=== PATIENT | female | born 1945 | race Caucasian/White ===

== ENCOUNTER 2022-08-25 12:37 | Outpatient (RCR) | payer MEDICARE, SELFPAY ==
--- NOTE | ~2022-08-25 | XR_ITS ---
EXAMINATION: XR CHEST CLINICAL INFORMATION: Preprocedure evaluation COMPARISON: None available. TECHNIQUE: 2 views of the chest were obtained. FINDINGS: The lungs are clear. The heart is normal in size. The vascularity is normal. No airspace consolidation or groundglass opacity or effusion. The costophrenic sulci are clear. Tapering cardiac apex is consistent with areolar tissue. The hilar and mediastinal contours are unremarkable. There are multilevel degenerative changes thoracic spine. XR/XR chest 2V IMPRESSION: Unremarkable examination.
[2022-09-11 11:57] LABS: MANUAL DIFF FLAG NO
[2022-09-11 12:38] LABS: Basophils Percent Auto 0.7 % (0-2); Eosinophils Absolute Auto 0.1 X10*3/uL (0.0-0.4); Hematocrit 41.1 % (37.0-47.0); Hemoglobin 13.4 g/dl (12.0-16.0); Imm Gran Abs Auto 0.05 X10*3/uL (0.00-0.03); Imm Gran Pct Auto 0.8 % (0.0-0.4); Lymphocytes Absolute Auto 1.2 X10*3/uL (1.2-4.9); Lymphocytes Percent Auto 20.4 % (20-40); Mean Corpuscular HGB Conc 32.6 g/dl (31.0-35.0); Mean Corpuscular Hemoglobin 30.6 pg (27.0-33.0); Mean Corpuscular Volume 93.8 fL (80.0-98.0); Mean Platelet Volume 9.1 fL (9.4-12.3); Monocytes Absolute Auto 0.4 X10*3/uL (0.1-1.2); Monocytes Percent Auto 6.7 % (2-11); Neutrophils Absolute Auto 4.3 x10*3/uL (2.0-8.3); Neutrophils Percent Auto 70.4 % (45-73); Platelet Count 326 X10*3/uL (160-400); Red Blood Count 4.38 X10*6/uL (4.20-5.50); Red Cell Distribution Width 13.3 % (11.0-16.0); White Blood Count 6.1 X10*3/uL (4.8-10.8)
[2022-09-11 13:15] LABS: Anion Gap 13 (12-20); Blood Urea Nitrogen 24 mg/dL (9-16); C Reactive Protein 0.37 mg/dL (< or = 0.50); Calcium 9.6 mg/dL (8.4-10.2); Carbon Dioxide 25 mmol/L (22-29); Chloride 105 mmol/L (96-108); Estimated Glomerular Filt Rate 34; Glucose Random 142 mg/dL (60-115); Potassium 4.6 mmol/L (3.3-5.1); Sodium 138 mmol/L (135-145)
[2022-09-11 13:18] LABS: Erythrocyte Sedimentation Rate 23 MM/HR (0-20); Estimated Average Glucose 128 mg/dL; Hemoglobin A1c % 6.1 %
== END 2022-09-15 13:38 | disposition home or self-care (01) ==
LOC: HO.WCC 12:37
PROVIDERS: PCP Internal Medicine; Visit Provider Surgery
DX: M27.2 Inflammatory conditions of jaws (principal); I10 Essential (primary) hypertension; K04.7 Periapical abscess without sinus; Z85.810 Personal history of malignant neoplasm of tongue; Z92.3 Personal history of irradiation
CPT/HCPCS: 36415; 71046; 80048; 83036; 84134; 85025; 85652; 86140; 99212

== ENCOUNTER 2023-11-17 06:56 | Outpatient (REF) | payer MEDICARE, SELFPAY ==
--- NOTE | ~2023-11-17 | XR_ITS ---
EXAMINATION: XR KNEE, RIGHT XR KNEE, LEFT CLINICAL INFORMATION: Pain in the knees. COMPARISON: None TECHNIQUE: Three views of each knee. FINDINGS: RIGHT KNEE: Tricompartmental osteoarthritis is most severe in the lateral compartment with marginal narrowing, marginal osteophytes, and articular sclerosis. More [id number] medial and patellofemoral compartment osteoarthritis. Multiple loose bodies are present in the posterior aspect of the joint. Small joint effusion. Increased valgus angulation at the knee. No acute fractures. LEFT KNEE: Tricompartmental osteoarthritis is most pronounced in the lateral compartment with joint space narrowing, marginal osteophytes, and articular sclerosis. More [id number] patellofemoral and medial compartment osteoarthritis. Small joint effusion. Increased valgus angulation at the knee. No acute fractures. XR/XR knee RT 3V IMPRESSION: 1. 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 2. Small bilateral joint effusions.
--- NOTE | ~2023-11-17 | XR_ITS ---
EXAMINATION: XR KNEE, RIGHT XR KNEE, LEFT CLINICAL INFORMATION: Pain in the knees. COMPARISON: None TECHNIQUE: Three views of each knee. FINDINGS: RIGHT KNEE: Tricompartmental osteoarthritis is most severe in the lateral compartment with marginal narrowing, marginal osteophytes, and articular sclerosis. More [id number]-zt-xylhlyux medial and patellofemoral compartment osteoarthritis. Multiple loose bodies are present in the posterior aspect of the joint. Small joint effusion. Increased valgus angulation at the knee. No acute fractures. LEFT KNEE: Tricompartmental osteoarthritis is most pronounced in the lateral compartment with joint space narrowing, marginal osteophytes, and articular sclerosis. More vcpe-fh-zsquivyi patellofemoral and medial compartment osteoarthritis. Small joint effusion. Increased valgus angulation at the knee. No acute fractures. XR/XR knee LT 3V IMPRESSION: 1. 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 2. Small bilateral joint effusions.
== END 2023-11-17 06:57 | disposition home or self-care (01) ==
LOC: HO.HOSX 06:56
PROVIDERS: Visit Provider Orthopaedic Surgery
DX: M25.561 Pain in right knee (principal); M25.562 Pain in left knee
CPT/HCPCS: 20610; 73562; 99212; J1010

== ENCOUNTER 2023-11-17 12:54 | Outpatient (AMB) | payer MEDICARE, SELFPAY ==
--- NOTE | 2023-11-17 12:59 | MHC.OFFVIS ---
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 She describes her pains as sharp in nature. She has had cortisone injections which gave her fairly good relief. She has done physical therapy exercises which aggravated her pain. She has also tried Tylenol and anti-inflammatory medicines which gave her only mild relief. She wishes to hold off on surgery for as long as possible. Allergies No Known Allergies Allergy (Verified 11/17/23 13:23) Medication List - Last Reconciled 11/19/23 by Sushant Cordon MD amlodipine 10 mg PO DAILY aspirin (Adult Aspirin Regimen) 81 mg PO DAILY atorvastatin 10 mg PO DAILY calcitriol 0.25 mcg PO DAILY famotidine 20 mg PO BID levothyroxine 100 mcg PO DAILY losartan 25 mg PO DAILY metoprolol tartrate 25 mg PO DAILY Physical Exam Const Other: Well-nourished well-developed very friendly female awake alert and oriented x3 in no acute distress Extrem Other: Bilateral lower extremity examination shows good capillary refill, no skin lesions noted, normal sensation light touch Bilateral knee examination shows minimal effusions, palpable crepitus with range of motion, pain with range of motion, range of motion from -3 degrees to 115 degrees, no instability Office Procedures Joint Injection/Drain Joint Injection/Drain Primary Site: left knee Prep: site was prepped using aseptic technique Injected: 40 mg of, DepoMedrol and 1% plain lidocaine Procedure: The patient tolerated the procedure well Coding 24542 - Large joint Procedure code (CPT) selection complete Joint Injection/Drain Joint Injection/Drain Primary Site: right knee Prep: site was prepped using aseptic technique Injected: 40 mg of, DepoMedrol and 1% plain lidocaine Procedure: The patient tolerated the procedure well Coding 84163 - Large joint Procedure code (CPT) selection complete Results Reviewed Results Reviewed: X-rays of the patient's bilateral knee show joint space narrowing, subchondral sclerosis, no acute bony abnormalities Assessment & Plan Assessment & Plan (1) Left knee pain: Code(s): M25.562 - Pain in left knee Category: Medical (2) Right knee pain: Code(s): M25.561 - Pain in right knee Category: Medical Plan Ms. Parks presents with bilateral knee pains due to degenerative joint disease. I had a lengthy discussion with the patient regarding the treatment options. She wishes to hold off on total knee replacement surgery for as long as possible. I agree with this plan. The risks and benefits of bilateral knee cortisone injections were discussed at length with the patient. The patient wished to proceed. She tolerated the injections well. She will continue with her activity modifications. She will follow up with me on an as-needed basis should her symptoms not plateau at an unacceptable level over the next few months. Feel free to call me at any time should questions regarding her orthopedic management arise. I spent 20 minutes in reviewing the patient's records and imaging studies, seeing the patient and documenting in the medical record. Orders: Orders XR knee RT 3V 11/17/23 M25.561 - Pain in right knee AMB Joint Injection/Aspiration 11/17/23 M25.562 - Pain in left knee XR knee LT 3V 11/17/23 M25.562 - Pain in left knee AMB Joint Injection/Aspiration 11/17/23 M25.561 - Pain in right knee Coding Level of Care Code Est Pt Level 3 (15364) Diagnoses Left knee pain M25.562 Right knee pain M25.561 CPT Codes Coding - 22098 Large joint: 22105 - Large joint ([id number]) Coding - 57725 Large joint: 59161 - Large joint ([id number])
== END 2023-11-17 14:01 | disposition home or self-care (01) ==
PROVIDERS: PCP Internal Medicine; Visit Provider Orthopaedic Surgery
DX: M17.0 Bilateral primary osteoarthritis of knee (principal)
CPT/HCPCS: 20610; 99213

== ENCOUNTER 2024-02-22 13:20 | Outpatient (AMB) | payer MEDICARE, SELFPAY ==
--- NOTE | 2024-02-22 13:28 | MHC.OFFVIS ---
Vital Signs 02/22/24 13:34 Height 5 ft 5 in Weight 190 lb BMI 31.6 Intake Visit Reasons: OV- b/l knee pain-follow up Intake Note: Brooklyn is a 78 year old female who presents with complaints of intermittent discomfort in both of her knees. At her last appointment she did have cortisone injections given into both of her knees. She got fairly good relief from those injections. She states that at this point her bilateral knee pains are tolerable to her. She continues with her home exercise program. She denies any fevers or chills. Allergies No Known Allergies Allergy (Verified 02/22/24 13:35) Medication List - Last Reconciled 02/22/24 by Sushant Cordon MD amlodipine 10 mg PO DAILY aspirin (Adult Aspirin Regimen) 81 mg PO DAILY atorvastatin 10 mg PO DAILY calcitriol 0.25 mcg PO DAILY famotidine 20 mg PO BID levothyroxine 100 mcg PO DAILY losartan 25 mg PO DAILY metoprolol tartrate 25 mg PO DAILY Physical Exam Vital Signs: BMI result Body Mass Index 31.6 Const Other: Well-nourished well-developed very friendly female awake alert and oriented x3 in no acute distress Extrem Other: Bilateral lower extremity examination shows good capillary refill, no skin lesions noted, normal sensation light touch Bilateral knee examination shows minimal effusions, palpable crepitus with range of motion, pain with range of motion, no instability Results Reviewed Results Reviewed: X-rays of the patient's bilateral knees taken previously show joint space narrowing, subchondral sclerosis, no acute bony abnormalities Assessment & Plan Assessment & Plan (1) Right knee pain: Code(s): M25.561 - Pain in right knee Category: Medical (2) Left knee pain: Code(s): M25.562 - Pain in left knee Category: Medical Plan Ms. Parks presents with bilateral knee pains due to degenerative joint disease. I had a lengthy discussion with the patient regarding the treatment options. At this point the patient's symptoms are tolerable to her. She will continue with her home exercise program. She will follow up with me on an as-needed basis should her symptoms worsen in any way. Feel free to call me at any time should questions regarding her orthopedic management arise. I spent 20 minutes in reviewing the patient's records and imaging studies, seeing the patient and documenting in the medical record. Coding Level of Care Code Est Pt Level 3 (51518) Complex EM visit Add On G2211 Diagnoses Right knee pain M25.561 Left knee pain M25.562
[2024-02-22 13:34] VITALS: BMI 31.6
== END 2024-02-22 13:52 | disposition home or self-care (01) ==
PROVIDERS: PCP Internal Medicine; Visit Provider Orthopaedic Surgery
DX: M25.561 Pain in right knee (principal); M25.562 Pain in left knee
CPT/HCPCS: 99213; G2211

== ENCOUNTER → 2024-02-22 13:20 | Outpatient (BNVA) | payer MEDICARE, SELFPAY | PROVIDERS: PCP Internal Medicine; Visit Provider Orthopaedic Surgery | DX: M25.561 Pain in right knee (principal); M25.562 Pain in left knee | CPT/HCPCS: 99212 ==

== ENCOUNTER 2024-02-23 10:18 | Outpatient (REF) | payer MEDICARE, SELFPAY ==
[2024-02-23 11:45] LABS: Anion Gap 12 (12-20); Blood Urea Nitrogen 33 mg/dL (9-16); Calcium 10.3 mg/dL (8.4-10.2); Carbon Dioxide 27 mmol/L (22-29); Chloride 106 mmol/L (96-108); Estimated Glomerular Filt Rate 32; Glucose Random 104 mg/dL (60-115); Potassium 4.9 mmol/L (3.3-5.1); Sodium 140 mmol/L (135-145)
[2024-02-23 12:11] LABS: Folate 6.9 ng/mL (> or = 4.0); Vitamin B12 297 pg/mL (200-900)
== END 2024-02-23 10:19 | disposition home or self-care (01) ==
LOC: HO.LAB 10:18
PROVIDERS: PCP Internal Medicine; Visit Provider Psychiatry & Neurology Neurology
DX: G31.84 Mild cognitive impairment of uncertain or unknown etiology (principal)
CPT/HCPCS: 36415; 80048; 82607; 82746; 84207; 84443

== ENCOUNTER 2024-03-14 11:00 | Outpatient (REF) | payer MEDICARE, SELFPAY | END 2024-03-14 11:01 | disposition home or self-care (01) | LOC: HO.LAB 11:00 | PROVIDERS: PCP Internal Medicine; Visit Provider Psychiatry & Neurology Neurology | DX: Z13.89 Encounter for screening for other disorder (principal) ==

== ENCOUNTER 2024-03-16 09:22 | Outpatient (REF) | payer MEDICARE, SELFPAY ==
[2024-03-23 06:14] LABS: Vitamin B6 5.2 ng/mL (2.1-21.7)
== END 2024-03-16 09:23 | disposition home or self-care (01) ==
LOC: HO.LAB 09:22
PROVIDERS: PCP Internal Medicine; Visit Provider Psychiatry & Neurology Neurology
DX: G31.84 Mild cognitive impairment of uncertain or unknown etiology (principal)
CPT/HCPCS: 36415; 84207

== ENCOUNTER 2024-03-30 13:24 | Outpatient (AMB) | payer MEDICARE, SELFPAY ==
--- NOTE | 2024-03-30 13:29 | A.OFFVIS_ITS ---
Vital Signs 03/30/24 13:31 Height 5 ft 5 in Weight 190 lb BMI 31.6 Intake Visit Reasons: OV - Bilateral Knee Pain Intake Note: Brooklyn is a 78 year old female who presents today for a follow up of her bilateral knee pain. Patient recieved bilateral knee injections on 11/17/23. She states that she got fairly good relief from those injections. Her pains have returned. She has tried Tylenol and anti-inflammatory medicines which gave her minimal relief. She has also done physical therapy exercises which aggravated her pain. She would like to hold off on total knee replacement surgery if at all possible. Allergies morphine Allergy (Severe, Verified 03/30/24 13:32) Vomiting ELIJAH Inhibitors Adverse Reaction (Severe, Verified 03/30/24 13:32) Cough Medication List - Last Reconciled 03/31/24 by Sushant Cordon MD amlodipine 10 mg PO DAILY aspirin (Adult Aspirin Regimen) 81 mg PO DAILY atorvastatin 10 mg PO DAILY calcitriol 0.25 mcg PO DAILY famotidine 20 mg PO BID levothyroxine 100 mcg PO DAILY losartan 25 mg PO DAILY metoprolol tartrate 25 mg PO DAILY [facility] Social History (Updated 03/30/24 @ 13:33 by NABEEL Olsen) Alcohol intake: current Alcohol intake frequency: holidays/special occasions only Patient Tobacco Use Status: Never used Tobacco Current occupational status: retired Physical Exam Vital Signs: BMI result Body Mass Index 31.6 Const Other: Well-nourished well-developed very friendly female awake alert and oriented x3 in no acute distress Extrem Other: Bilateral lower extremity examination shows good capillary refill, no skin lesions noted, normal sensation light touch Bilateral knee examination shows minimal effusions, palpable crepitus with range of motion, pain with range of motion, no instability Office Procedures AMB Joint Injection/Aspiration Joint Injection/Aspiration Primary Site: left knee Prep: site was prepped using aseptic technique Injected: 40 mg of, DepoMedrol and 1% plain lidocaine Procedure: The patient tolerated the procedure well Coding 06351 - Large joint Procedure code (CPT) selection complete AMB Joint Injection/Aspiration Joint Injection/Aspiration Primary Site: right knee Prep: site was prepped using aseptic technique Injected: 40 mg of, DepoMedrol and 1% plain lidocaine Procedure: The patient tolerated the procedure well Coding 00320 - Large joint Procedure code (CPT) selection complete Results Reviewed Results Reviewed: X-rays of the patient's bilateral knee show joint space narrowing, subchondral sclerosis, no acute bony abnormalities Assessment & Plan Assessment & Plan (1) Left knee pain: Code(s): M25.562 - Pain in left knee Category: Medical (2) Right knee pain: Code(s): M25.561 - Pain in right knee Category: Medical Plan Ms. Parks presents with bilateral knee pains due to degenerative joint disease. A lengthy discussion patient regarding treatment options. The risks and benefits of bilateral knee cortisone injections were discussed at length with the patient. The patient wished to proceed. She tolerated the injections well. She will continue with her home exercise program. She will contact me prior to her follow-up appointment in 3 months should any questions or concerns arise. Feel free to call me at any time should questions regarding her orthopedic management arise. I spent 22 minutes in reviewing the patient's records and imaging studies, seeing the patient and documenting in the medical record. Orders: Orders AMB Joint Injection/Aspiration 03/30/24 M25.561 - Pain in right knee AMB Joint Injection/Aspiration 03/30/24 M25.562 - Pain in left knee Coding Level of Care Code Est Pt Level 3 (32841) Complex EM visit Add On G2211 Diagnoses Left knee pain M25.562 Right knee pain M25.561 CPT Codes Coding - 14229 Large joint: 98879 - Large joint ([id number]) Coding - 29609 Large joint: 43561 - Large joint ([id number])
[2024-03-30 13:31] VITALS: BMI 31.6
== END 2024-03-30 13:54 | disposition home or self-care (01) ==
PROVIDERS: PCP Internal Medicine; Visit Provider Orthopaedic Surgery
DX: M17.0 Bilateral primary osteoarthritis of knee (principal)
CPT/HCPCS: 20610; 99213

== ENCOUNTER → 2024-03-30 13:24 | Outpatient (BNVA) | payer MEDICARE, SELFPAY | PROVIDERS: PCP Internal Medicine; Visit Provider Orthopaedic Surgery | DX: M25.561 Pain in right knee (principal); M25.562 Pain in left knee | CPT/HCPCS: 20610; 99212; J1010; J2003 ==

== ENCOUNTER 2024-07-11 13:28 | Outpatient (AMB) | payer MEDICARE, SELFPAY ==
--- NOTE | 2024-07-11 13:34 | A.OFFVIS_ITS ---
Intake Visit Reasons: OV-B/L knee injection follow up Intake Note: Brooklyn is an 79 year old female who presents today for a follow up of her bilateral knee pains. The patient states that she got mild relief from the injections given to her at her last visit. She states that her bilateral legs feel ?weak?. The patient states that she does not have a home exercise program. She would like to try formal physical therapy. Allergies morphine Allergy (Severe, Verified 07/11/24 13:37) Vomiting ELIJAH Inhibitors Adverse Reaction (Severe, Verified 07/11/24 13:37) Cough Medication List - Last Reconciled 07/11/24 by Sushant Cordon MD amlodipine 10 mg PO DAILY aspirin (Adult Aspirin Regimen) 81 mg PO DAILY atorvastatin 10 mg PO DAILY calcitriol 0.25 mcg PO DAILY famotidine 20 mg PO BID levothyroxine 100 mcg PO DAILY losartan 25 mg PO DAILY metoprolol tartrate 25 mg PO DAILY PFSH Social History Alcohol intake: current Alcohol intake frequency: holidays/special occasions only Patient Tobacco Use Status: Never used Tobacco Current occupational status: retired Physical Exam Const Other: Well-nourished well-developed very friendly female awake alert and oriented x3 in no acute distress Extrem Other: Bilateral lower extremity examination shows good capillary refill, no skin lesions noted, normal sensation light touch Bilateral knee examination shows minimal effusions, palpable crepitus with range of motion, pain with range motion, no instability Assessment & Plan Assessment & Plan (1) Degenerative arthritis of knee, bilateral: Code(s): M17.0 - Bilateral primary osteoarthritis of knee Category: Medical Plan Ms. Parks presents with bilateral knee pains due to degenerative joint disease. I did give her a prescription to go to formal physical therapy. We will hold off on another injection for now. She will contact me prior to her follow-up a ppointment in 3 months should any questions or concerns arise. Feel free to call me at any time should questions regarding her orthopedic management arise. I spent 21 minutes in reviewing the patient's records and imaging studies, seeing the patient and documenting in the medical record. Orders: Orders PT Evaluation and Treatment Today M17.0 - Bilateral primary osteoarthritis of knee Coding Level of Care Code Est Pt Level 3 (65260) Complex EM visit Add On G2211 Diagnoses Degenerative arthritis of knee, bilateral M17.0
--- OUTSIDE RECORDS SUMMARY | 2024-07-11 16:34 | XMS_ITS ---
Author Name [facility] Organization Unknown History of Medication Use Medication Directions Dispensed Refills Start Date End Date Stat us atorvastatin 20 mg tablet TAKE ONE-HALF TABLET BY MOUTH ONCE DAILY active Kenalog 40 mg/mL suspension for injection Take 1 mL by injection route. 03/30/2023 active losartan 08/12/2022 completed losartan 25 mg tablet TAKE ONE TABLET BY MOUTH EVERY DAY active Kenalog 40 mg/mL suspension for injection active levothyroxine 125 mcg tablet TAKE ONE TABLET BY MOUTH DAILY 03/30/2023 completed amlodipine 10 mg tablet TAKE ONE TABLET BY MOUTH EVERY DAY active Allergies Allergen Reaction Severity Comment Documented Date Source Statu s MORPHINE [facility] LISINOPRIL [facility] Problems Problem Status Onset Date Problem Type Date of Resoluti on Source Full thickness rotator cuff tear active 2022-08-05 ProblemAct [facility] Impingement syndrome of left shoulder region active 2022-08-12 ProblemAct [facility] ECT
--- OUTSIDE RECORDS SUMMARY | 2024-07-11 16:34 | XMS_ITS | Clinical Summary ---
Author Organization [address] Address [address] [place] [phone] Phone Care Team Providers Care Public Relations Writer Name Role Phone Jefferson Fletcher MD Primary Care Provider [phone] Allergies Active Allergy Reactions Criticality Noted Date Comments Charles Inhibitors Other Low 01/03/2009 Cough Morphine Nausea And Vomiting 05/02/2006 Medications atorvastatin (LIPITOR) 20 mg tablet Take 10 mg by mouth at bedtime. 2 Active famotidine (PEPCID) 20 mg tablet Take 1 tablet (20 mg total) by mouth 2 (two) times a day. Active losartan (COZAAR) 25 mg tablet Take 1 tablet (25 mg total) by mouth 1 (one) time each day. Active cholecalcifero l (VITAMIN D-3) 50 mcg (2,000 unit) capsule Take 1 capsule (2,000 Units total) by mouth 1 (one) time each day. 1 Active aspirin 81 mg chewable tablet Chew 1 tablet (81 mg total) 1 (one) time each day. Active metoprolol tartrate (LOPRESSOR) 25 mg tablet TAKE ONE TABLET BY MOUTH EVERY DAY 90 tablet 1 4 Active levothyroxine (SYNTHROID, LEVOTHROID) 100 mcg tablet Take 1 tablet (100 mcg total) by mouth 1 (one) time each day. 90 tablet 1 5 Active calcitrioL (ROCALTROL) 0.25 mcg capsule Take 1 capsule (0.25 mcg total) by mouth every other day. 90 capsule 3 5 Active amLODIPine (NORVASC) 10 mg tablet TAKE ONE TABLET BY MOUTH EVERY DAY 90 tablet 5 Active amLODIPine (NORVASC) 10 mg tablet Take 1 tablet (10 mg total) by mouth 1 (one) time each day. 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 (04/24/2024): Of jaw, related to the radiation therapy Chronic kidney disease, stage III (moderate) 04/2007 Hypothyroidism 02/22/2007 Malignant neoplasm of base of tongue 04/05/2006 Overview (04/24/2024): treated with chemo 02/2006 - 04/2006 RT to lymph nodes D11-04/2006 X4 Obesity, unspecified 12/14/2005 Hypercholesterolemia 05/04/2000 Ocular migraine 09/17/1998 Overview (04/24/2024): IMO update Hypertension 06/28/1998 Encounters Date Type Department Care Team Description 06/07/2024 3:00 PM EST Office Visit Nephrology [address] [phone] Osmar Bales MD Stage 3b chronic kidney disease (CMS/HCC) (Primary Dx); Primary hypertension; Secondary hyperparathyroidism of renal origin (CMS/HCC) 05/25/2024 Telephone Adult Medicine [address] [phone] Zuly Vega [place] refill/ patient came in for refill from Last 3 Months Immunizations Name Administration Dates Next Due H1N1 Inj Preservative Free 05/15/2009 Hepatitis A Adult (Havrix; V aqta) 19yo and older 10/26/2003 IPV Inactivated polio (Ipol) 6wks and older 11/02/2003 Influenza trivalent, 0.5mL ( Fluad) 65yo and older 02/03/2016,02/22/2014,01/24/2013,03/18,01/21/2011,01/23/2010,01/28/2009 Influenza trivalent, 0.5mL, preservative free (Fluarix; FluLaval; Fluzone) ages 6mo and older (Afluria) 3 years and older 03/19/2008,02/22/2007 Pfizer SARS-CoV-2 COVID-19, mRNA, LNP-S, preservative free 06/16/2020 Pneumococcal conjugate 13 va lent (Prevnar 13, PCV13) 2mo and older 08/09/2018 Pneumococcal polysaccharide 23 valent (Pneumovax 23) 2yo and older 01/22/2014,04/13/2005 Td Tetanus diptheria (Tdvax) 7yo and older 10/19/2003,12/04/1993 Td, Unspecified 10/19/2003 Tdap Tetanus diptheria acell ular pertussis (Boostrix; Adacel) 7yo and older 01/22/2014 Surgical History Surgery Date Site/Laterality Comments OTHER SURGICAL HISTORY 12/2004 PROCEDURE: MAMMOGRAM, DIAGNOSTIC, BILATERAL; COMMENT: CODE 1 NEGATIVE OTHER SURGICAL HISTORY 05/27/2004 PROCEDURE: SCREENING PAP SMEAR BY PHYS; COMMENT: NEGATIVE OTHER SURGICAL HISTORY 07/30/1998 PROCEDURE: DXA, BONE DENSITY STUDY, 1+ SITES; VERTEBRAL FX ASSESS; COMMENT: NORMAL TONSILLECTOMY PROCEDURE: HISTORICAL TONSILLECTOMY COLONOSCOPY 06/06/1998 PROCEDURE: HISTORICAL COLONOSCOPY; COMMENT: NORMAL COLONOSCOPY 05/28/2005 PROCEDURE: HISTORICAL COLONOSCOPY; COMMENT: Dr. Miller at [facility]; negative exam for small volume rectal bleedilng. COLONOSCOPY 05/27/2017 PROCEDURE: HISTORICAL COLONOSCOPY; COMMENT: negative screening exam. Medical History Medical History Date Comments Osteoarthrosis, unspecified whether generalized or localized, ankle and foot 03/18/99 DX:Osteoarthrosis, unspecifi ed whether generalized or localized, ankle and foot Pure hypercholesterolemia 05/04/00 DX:Pur e hypercholesterolemia Submucous leiomyoma of uterus 10/28/00 DX :Submucous leiomyoma of uterus Personal history of diseases of skin and subcutaneous tissue 10/12/2001 DX:Personal history of disea ses of skin and subcutaneous tissue Other forms of migraine, wit hout mention of intractable migraine without mention of status migrainosus 09/17/1998 DX:Other forms o f migraine, without mention of intractable migraine without mention of status migrainosus Malignant neoplasm of base o f tongue (CMS/HCC) 04/05/2006 DX:Malignant neoplasm of bas e of tongue ([facility]); COMMENT: treated with chemo 02/2006 - 04/2006 RT to lymph nodes D1-04/2006 X4 Type II or unspecified type diabetes mellitus without mention of complication, not stated as uncontrolled 04/28/99 DX:Type II or unspecified ty pe diabetes mellitus without mention of complication, not stated as uncontrolled; COMMENT: DIET CONTROLLED Esophageal reflux 01/12/01 DX:Esophageal reflux Essential hypertension, benign 06/28/98 D X:Essential hypertension, benign Unspecified hypothyroidism 02/22/2007 DX:Un specified hypothyroidism DM (diabetes mellitus) type II controlled with renal manifestation (CMS/HCC) 04/27/2011 DX:DM (diabetes mellitus) ty pe II controlled with renal manifestation ([facility]) History of other specified c onditions presenting hazards to health 2005 DX:History of other speci fied conditions presenting hazards to health; COMMENT: tongue and lymph node Family History Medical History Relation Name Comments Breast cancer Aunt mat and a cousin Other: atrial fibrillation Daughter a t age 45 Coronary artery disease Father AGE 88 (PACEMAKER,CAROTID STENOSIS) Other: carotid disease Father Arthritis Mother Hyperlipidemia Mother HYPERLIPIDEMI A, htn Stroke Mother Breast cancer Other 1 mat cousin Other: cad Other 2 nephew had CABG at 45 Hypertension Sister Melanoma Uncle Blindness Neg Hx Cataracts Neg Hx Glaucoma Neg Hx Macular degeneration Neg Hx Strabismus Neg Hx Relation Name Status Comments Aunt mat Daughter Father Mother Other 1 mat cousin Other 2 Sister Uncle Social History Tobacco Use Types Packs/Day Years Used Date Smoking Tobacco: Never Smokeless Tobacco: Never Alcohol Use Standard Drinks/Week Comments Yes 0 (1 standard drink = 0.6 oz pur e alcohol) Comments Unknown Sex and Gender Information Value Date Recorded Sex Assigned at Not on file Legal Sex Female 7:08 PM EST Gender Identity Not on file Sexual Orientation Not on file Obstetrics History Last Filed Vital Signs Vital Sign Reading Time Taken Comments Blood Pressure 138/78 03/13/2024 3:13 PM EDT Pulse 69 06/07/2024 3:25 PM EST Temperature - - Respiratory Rate - - Oxygen Saturation 98% 11/01/2023 1:0 0 PM EDT at rest, room air Inhaled Oxygen Concentration - - Weight 89 kg (196 lb 3.2 oz) 06/07/2024 3:25 PM EST Height 165.1 cm (5' 5 ) 03/13/2024 3:13 PM EDT Body Mass Index 32.65 03/13/2024 3:13 PM EDT Plan of Treatment Upcoming Encounters Date Type Department Care Team (Late st Contact Info) Description 07/27/2024 9:30 AM EDT Office Visit [facility] - [address] [phone] Mariano Low PA [address] [place], [place] 01/03/2025 4:30 PM EDT Office Visit Nephrology - [address] [phone] Osmar Bales MD [address] [facility] [address] [place] [address] 01/16/2025 8:00 AM EDT Appointment Radiology Department - [address] [phone] Health Maintenance Due Date Last Done Comments Diabetes: Annual Retina Eye Exam 1955 Zoster Vaccines (1 of 2) 1963 IPV Vaccines (2 of 3 - Adult catch-up series) 11/30/2003 11/02/2003 RSV Immunization Patients 60+ Years Old (1 - 1-dose 75+ series) 2019 Social Influencers of Health Screening 04/25/2022 COVID-19 Vaccine ( season) 2024 04/01/2022, 02/20/2021, 07/07/2020, Additional history exists Influenza Vaccine (#1) 2024 6, 02/22/2014, 01/24/2013, Additional history exists DTaP,Tdap,and Td Vaccines (5 - Td or Tdap) 01/23/2024 01/22/2014, 10/19/2003, 10/19/2003, Additional history exists Diabetes: Blood Sugar Control Test (HGBA1C) 11/30/2024 06/02/2024, 03/09/2024, 03/09/2024, Additional history exists Depression Screening 03/13/2025 03/13/2024 Diabetes: Annual Foot Exam 03/13/2025 03/13/2024 Falls Risk Assessment 03/13/2025 03/13/2024 Medicare Annual Wellness Visit 03/13/2025 03/13/2024 Diabetes: Annual Urine Albumin-Creatinine Ratio (uACR) 06/02/2025 06/02/2024, 08/26/2023 Diabetes: Annual GFR (Glomerular Filtration Rate) 06/02/2025 06/02/2024, 10/21/2023, 10/21/2023 Hypertension/CHF/CAD Annual BMP Blood Test 06/02/2025 06/02/2024, 10/21/2023, 10/21/2023 Cholesterol Screening (Lipid Panel) 06/02/2029 06/02/2024, 08/26/2023 Osteoporosis Screening (Bone Density Screening) 01/15/2033 01/15/2023, 03/29/2017 Hepatitis A Vaccines Aged Out 10/26/2003 No long er eligible based on patient's age to complete this topic Pneumococcal Vaccine: 50+ Years Completed 08/09/2018, 01/22/2014, 04/13/2005 HIB Vaccines Aged Out No longer eligi ble based on patient's age to complete this topic HPV Vaccines Aged Out No longer eligi ble based on patient's age to complete this topic Hepatitis B Vaccines Aged Out No long er eligible based on patient's age to complete this topic MMR Vaccines Aged Out No longer eligi ble based on patient's age to complete this topic Meningococcal ACWY Vaccine Aged Out N o longer eligible based on patient's age to complete this topic Meningococcal B Vacine Aged Out No lo nger eligible based on patient's age to complete this topic RSV Immunization Patients Under 20 months Aged Out No longer eligible based on patient's age to complete this topic Varicella Vaccines Aged Out No longer eligible based on patient's age to complete this topic Procedures Procedure Name Priority Date/Time Associated Diagnosis Comments HEMOGLOBIN A1C Routine 06/02/2024 1:07 PM EST DM type 2 causing eye disease (CMS/HCC) Hypertension, unspecified type Hypercholesterolem ia Hypothyroidism, unspecified type Stage 3 chronic kidney disease, unspecified whether stage 3a or 3b CKD (CMS/HCC) MICROALBUMIN CREATININE URINE RATIO Routine 06/02/2024 1:07 PM EST DM type 2 causing eye disease (CMS/HCC) Hypertension, unspecified type Hypercholesterolem ia Hypothyroidism, unspecified type Stage 3 chronic kidney disease, unspecified whether stage 3a or 3b CKD (CMS/HCC) BASIC METABOLIC PANEL Routine 06/02/2024 1:07 PM EST DM type 2 causing eye disease (CMS/HCC) Hypertension, unspecified type Hypercholesterolem ia Hypothyroidism, unspecified type Stage 3 chronic kidney disease, unspecified whether stage 3a or 3b CKD (CMS/HCC) LIPID PANEL WITH REFLEX TO DIRECT LDL Routine 06/02/2024 1:07 PM EST DM type 2 causing eye disease (CMS/HCC) Hypertension, unspecified type Hypercholesterolem ia Hypothyroidism, unspecified type Stage 3 chronic kidney disease, unspecified whether stage 3a or 3b CKD (CMS/HCC) ASPARTATE AMINOTRANSFERASE Routine 06/02/2024 1:07 PM EST DM type 2 causing eye disease (CMS/HCC) Hypertension, unspecified type Hypercholesterolem ia Hypothyroidism, unspecified type Stage 3 chronic kidney disease, unspecified whether stage 3a or 3b CKD (CMS/HCC) ALANINE AMINOTRANSFERASE Routine 025 1:07 PM EST DM type 2 causing eye disease (CMS/HCC) Hypertension, unspecified type Hypercholesterolem ia Hypothyroidism, unspecified type Stage 3 chronic kidney disease, unspecified whether stage 3a or 3b CKD (CMS/HCC) DEPRESSION SCREENING Routine 03/13/2024 FALLS RISK ASSESSMENT Routine 03/13/2024 DIABETES FOOT EXAM Routine 03/13/2024 DXA BONE DENSITY STUDY 1+ SITS AXIAL SKEL Routine 01/15/2023 11:04 AM EDT Other specified personal risk factors, not elsewhere classified from Last 3 Months or Most Recently Relevant to Health Maintenance Results * (ABNORMAL) Lipid panel with reflex to direct LDL (06/02/2024 1:07 PM EST) [facility] Cholesterol 217(H) 0 - 200 mg/dL LAB CHEMISTRY METHOD 06/02/2024 9:12 PM EST [facility] Triglycerides 208(H) 0 - 150 mg/dL LAB CHEMISTRY METHOD 06/02/2024 9:12 PM EST [facility] HDL 61 >=40 mg/dL LAB CHEMISTRY METHOD 06/02/2024 9:12 PM EST [facility] LDL Calculated 114(H) 0 - 100 mg/dL LAB CHEMISTRY METHOD 06/02/2024 9:12 PM EST [facility] VLDL Cholesterol Gregory 41.6 mg/dL LAB CHEMISTRY METHOD 06/02/2024 9:12 PM EST [facility] Non HDL Chol. (LDL+VLDL) 156(H) <145 mg/dL LAB CHEMISTRY METHOD 06/02/2024 9:12 PM EST [facility] Chol/HDL Ratio 3.6 0.0 - 4.4 LAB CHEMISTRY METHOD 06/02/2024 9:12 PM EST [facility] Blood Venous blood specimen / Unknown Venipuncture / Unknown 06/02/2024 1:07 PM EST 06/02/2024 1:07 PM EST us Jefferson Fletcher MD LAB BLOOD ORDERABLES Final Resul t [facility] [address] [place] [address], [place] [phone] * (ABNORMAL) Microalbumin creatinine urine ratio (06/02/2024 1:07 PM EST) Pathologist [facility] Creatinine, Urine 158.0 mg/dL LAB CHEMISTRY METHOD 06/02/2024 10:58 PM [facility] Microalb, Ur 45.4(H) 0.0 - 29.0 mg/L LAB CHEMISTRY METHOD 06/02/2024 10:58 PM [facility] Microalb/Crea t Ratio 29 <30 mg/g creat LAB CHEMISTRY METHOD 06/02/2024 10:58 PM [facility] Urine Urine specimen obtained by clean catch procedure / Unknown Non-blood Collection / Unknown 06/02/2024 1:07 PM EST 06/02/2024 1:07 PM EST us Jefferson Fletcher MD LAB URINE ORDERABLES Final Resul t Performing Organization Address City/[facility]/ZIP Co de Phone Number [facility] [address] [place] [address], [place] [phone] * Alanine aminotransferase (06/02/2024 1:07 PM EST) [facility] ALT (SGPT) 21 10 - 60 unit/L LAB CHEMISTRY METHOD 06/02/2024 9:11 PM EST [facility] Blood Venous blood specimen / Unknown Venipuncture / Unknown 06/02/2024 1:07 PM EST 06/02/2024 1:07 PM EST us Jefferson Fletcher MD LAB BLOOD ORDERABLES Final Resul t [facility] [address] [place] [address], [place] [phone] * Aspartate aminotransferase (06/02/2024 1:07 PM EST) AST (SGOT) 14 10 - 42 unit/L LAB CHEMISTRY METHOD 06/02/2024 9:11 PM EST [facility] Blood Venous blood specimen / Unknown Venipuncture / Unknown 06/02/2024 1:07 PM EST 06/02/2024 1:07 PM EST us Jefferson Fletcher MD LAB BLOOD ORDERABLES Final Resul t Performing Organization Address City/[facility]/ZIP Co de Phone Number [facility] [address] [place] [address], [place] [phone] * Hemoglobin A1c (06/02/2024 1:07 PM EST) Hemoglobin A1C 6.3 <6.5 % LAB CHEMISTRY METHOD 06/02/2024 10:06 PM [facility] Mean Bld Glu Estim. 134 mg/dL LAB CHEMISTRY METHOD 06/02/2024 10:06 PM [facility] Blood Venous blood specimen / Unknown Venipuncture / Unknown 06/02/2024 1:07 PM EST 06/02/2024 1:07 PM EST us Jefferson Fletcher MD LAB BLOOD ORDERABLES Final Resul t Performing Organization Address [facility]/ZIP Co de Phone Number [facility] [address] [place] [address], [place] [phone] * (ABNORMAL) Basic metabolic panel (06/02/2024 1:07 PM EST) Pathologist [facility] Sodium 134 133 - 145 mmol/L LAB CHEMISTRY METHOD 06/02/2024 9:11 PM EST [facility] Potassium 4.6 3.5 - 5.5 mmol/L LAB CHEMISTRY METHOD 06/02/2024 9:11 PM EST [facility] Chloride 101 96 - 110 mmol/L LAB CHEMISTRY METHOD 06/02/2024 9:11 PM EST [facility] CO2 28 21 - 32 mmol/L LAB CHEMISTRY METHOD 06/02/2024 9:11 PM [facility] Anion Gap 5 3 - 11 LAB CHEMISTRY METHOD 06/02/2024 9:11 PM [facility] Glucose 114(H) 70 - 100 mg/dL LAB CHEMISTRY METHOD 06/02/2024 9:11 PM [facility] BUN 33(H) 5 - 25 mg/dL LAB CHEMISTRY METHOD 06/02/2024 9:11 PM [facility] Creatinine 1.66(H) 0.50 - 1.10 mg/dL LAB CHEMISTRY METHOD 06/02/2024 9:11 PM [facility] eGFR 31(L) >=60 mL/min/1. 73m2 LAB CHEMISTRY METHOD 06/02/2024 9:11 PM [facility] Comment:Calculation based on the??Chronic Kidney Disease Epidemiology Collaboration (CKD-EPI) equation refit??without adjustment for race. BUN/Creatinine Ratio 19.9 LAB CHEMISTRY METHOD 06/02/2024 9:11 PM [facility] Calcium 9.7 8.5 - 10.5 mg/dL LAB CHEMISTRY METHOD 06/02/2024 9:11 PM [facility] Blood Venous blood specimen / Unknown Venipuncture / Unknown 06/02/2024 1:07 PM EST 06/02/2024 1:07 PM EST Jefferson Fletcher MD LAB BLOOD ORDERABLES Final Resul t [facility] [address] [place] [address], * Falls Risk Assessment (03/13/2024) Falls Risk Assessment Abstracted Historical Provider HEALTH MAINTENANCE Final Result * Depression Screening (03/13/2024) Depression Screening Abstracted Historical Provider HEALTH MAINTENANCE Final Result * Diabetes Foot Exam (03/13/2024) Diabetes: Annual Foot Exam Abstracted us Historical Provider HEALTH MAINTENANCE Final Result * DXA BONE DENSITY STUDY 1+ SITS AXIAL SKEL (01/15/2023 11:04 AM EDT) Anatomical Region Laterality Modality Bone Densitometr y 12/01/2022 10:1 4 AM EDT Narrative 01/15/2023 5:49 PM EDT STUDY: ??DUAL ENERGY X-RAY ABSORPTIOMETRY / DXA REASON FOR EXAM: ?? Female, 77 years old. ??menopausal/postmenopausal disorder TECHNIQUE: ?? Bone Mineral Density (BMD) measurements of the lumbar spine and left hip were obtained. ?? COMPARISON: March 29, 2017 ?? FINDINGS: L1-L4 T score: 2.3. ??This corresponds to Normal bone density. This represents a 3.9 % increase in bone density compared with prior exam from March 29, 2017. Left femoral neck T score: 0.3. ??This corresponds to Normal bone density. Left total hip T score: 0.4. ??This corresponds to Normal bone density. This represents a 2.1 % increase in bone density compared with prior exam from March 29, 2017. IMPRESSION: IMPRESSION: Normal bone density Reference Information: The T-score is the number of standard deviations above or below the standard which is normal for young adults at their peak bone mineral density. The World Health Organization (WHO) interprets the T-scores as follows: Above ??-1 ?Normal bone density Between -1 and -2.5 ?Osteopenia Equal to / or below -2.5 ??Osteoporosis As a practical clinical guideline, osteopenia may be graded as follows: Mild -1 through -1.5 Moderate -1.6 ??through -2.0 Severe ??-2.1 ??through -2.4 References: 1. ??NIH Osteoporosis and Related Bone Diseases http://www.osteo.org 2. ??International Society for Clinical Densitometry http://www.iscd.org 3. ??National Osteoporosis Foundation http://www.nof.org Procedure Note Brissa Dee MD - 06/22/2023 STUDY: DUAL ENERGY X-RAY ABSORPTIOMETRY / DXA REASON FOR EXAM: Female, 77 years old. menopausal/postmenopausaldisorder TECHNIQUE: Bone Mineral Density (BMD) measurements of the lumbar spineand left hip were obtained. COMPARISON: March 29, 2017 FINDINGS: L1-L4 T score: 2.3. This corresponds to Normal bone density. This represents a 3.9 % increase in bone density compared with prior examfrom March 29, 2017. Left femoral neck T score: 0.3. This corresponds to Normal bonedensity. Left total hip T score: 0.4. This corresponds to Normal bone density. This represents a 2.1 % increase in bone density compared with prior examfrom March 29, 2017. IMPRESSION: IMPRESSION: Normal bone density Reference Information: The T-score is the number of standard deviations above or below thestandard which is normal for young adults at their peak bone mineral density. The World HealthOrganization (WHO) interprets the T-scores as follows: Above -1 Normal bone density Between -1 and -2.5 Osteopenia Equal to / or below -2.5 Osteoporosis As a practical clinical guideline, osteopenia may be graded as follows: Mild -1 through -1.5 Moderate -1.6 through -2.0 Severe -2.1 through -2.4 References: 1. NIH Osteoporosis and Related Bone Diseases http://www.osteo.org 2. International Society for Clinical Densitometry http://www.iscd.org 3. National Osteoporosis Foundation http://www.nof.org Mariano OBRIEN IMG DXA PROCEDURES Final Result from Last 3 Months or Most Recently Relevant to Health Maintenance Insurance MEDICARE [facility] Care Teams Public Relations Writer Relationship Specialty Start Date End Date Jefferson Fletcher MD [address] [place] [address] PCP - General 05/17/1992
--- OUTSIDE RECORDS SUMMARY | 2024-07-11 16:34 | XMS_ITS | Clinical Summary ---
Author Organization [facility] Facility Address [address] [address] Care Team Providers Care Stone Rougher Name Role Phone Unavailable Primary Care Provider Unavailabl e Medications calcitriol (ROCALTROL) 0.25 MCG capsule Take 1 capsule (0.25 mcg total) by mouth every other day 15 capsule 5 07/07/2021 Active Social History Tobacco Use Types Packs/Day Years Used Date Smoking Tobacco: Never Assessed Comments Unknown Sex and Gender Information Value Date Recorded Sex Assigned at Not on file Legal Sex Female 4:46 PM EST Gender Identity Not on file Sexual Orientation Not on file Plan of Treatment Health Maintenance Due Date Last Done Comments Pneumococcal Vaccine: 65+ Ye ars (1 of 1 - PCV) 2009 Influenza Vaccine (#1) 2024 Hepatitis B Vaccine Aged Out No longe r eligible based on patient's age to complete this topic
--- OUTSIDE RECORDS SUMMARY | 2024-07-11 16:34 | XMS_ITS | Clinical Summary ---
Author Organization [facility] Address [address] [place] [address] Care Team Providers Care Plastics Design Engineer Name Role Phone Jefferson Fletcher MD Primary Care Provider [phone] Allergies Active Allergy Reactions Criticality Noted Date Comments Charles Inhibitors Other (See Comments) Low 01/03/2009 Cough Morphine Nausea And Vomiting 05/02/2006 Medications Medication Sig Dispensed Refills Start Date End Date Status amLODIPine (NORVASC) tablet 10 mg TAKE ONE TABLET BY MOUTH EVERY DAY 0 04/15/2022 Active aspirin 81 MG chewable tablet Chew 1 tablet (81 mg total) by mouth daily. 0 Active atorvastatin (LIPITOR) tablet 20 mg TAKE ONE TABLET BY MOUTH EVERY DAY 0 03/05/2022 Active famotidine (PEPCID) 20 MG tablet 0 04/21/2022 Active Cholecalciferol 50 MCG (1999 UT) CAPS Take 1 capsule by mouth daily. 0 09/14/2010 Active levothyroxine (SYNTHROID) tablet 125 mcg Take 1 tablet (125 mcg total) by mouth daily. 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 07/23/2022 Impingement syndrome of left shoulder 07/23/2022 Family History Medical History Relation Name Comments Hypertension Mother Relation Name Status Comments Mother Social History Tobacco Use Types Packs/Day Years Used Date Smoking Tobacco: Never Assessed Tobacco Cessation:Counseling Given: Not Answered Sex and Gender Information Value Date Recorded Sex Assigned at Not on file Gender Identity Not on file Sexual Orientation Not on file Job Start Date Occupation Industry Not on file Not on file Not on file Last Filed Vital Signs Vital Sign Reading Time Taken Comments Blood Pressure - - Pulse - - Temperature - - Respiratory Rate - - Oxygen Saturation - - Inhaled Oxygen Concentration - - Weight 88.5 kg (195 lb) 04/24/2022 11:27 AM EST Height 165.1 cm (5' 5 ) 04/24/2022 11:27 AM EST Body Mass Index 32.45 04/24/2022 11:27 AM EST Plan of Treatment Health Maintenance Due Date Last Done Comments Depression Screening 1956 BMI Counseling 1962 Preventative Health Evaluation 1962 Shingrix-Zoster Vaccine (1 of 2) 1994 Fall Risk Assessment 2009 Osteoporosis Screening (DEXA Scan) 2009 RSV Adult > 60+ Yrs or (1 - 1-dose 75+ series) 2019 COVID-19 Vaccine ( season) 2024 02/20/2021, 07/07/2020, 06/17/2020 Influenza Vaccine (#1) 2024 6, 02/22/2014, 02/22/2014, Additional history exists DTap / Tdap / Td (2 - Td or Tdap) 01/23/2024 01/22/2014, 10/19/2003, 12/04/1993 Pneumococcal Vaccine Completed 08/09/2018, 01/22/2014, 04/13/2005 Hepatitis B Vaccines Aged Out No long er eligible based on patient's age to complete this topic RSV Ped < 20 months Aged Out No longe r eligible based on patient's age to complete this topic Care Teams Plastics Design Engineer Relationship Specialty Start Date End Date Jefferson Fletcher MD PCP - General Internal Medicine 04/24/22
== END 2024-07-11 13:52 | disposition home or self-care (01) ==
PROVIDERS: PCP Internal Medicine; Visit Provider Orthopaedic Surgery
DX: M17.0 Bilateral primary osteoarthritis of knee (principal)
CPT/HCPCS: 99213; G2211

== ENCOUNTER → 2024-07-11 13:28 | Outpatient (BNVA) | payer MEDICARE, SELFPAY | PROVIDERS: PCP Internal Medicine; Visit Provider Orthopaedic Surgery | DX: M17.0 Bilateral primary osteoarthritis of knee (principal) | CPT/HCPCS: 99212 ==

== ENCOUNTER 2024-12-05 09:54 | Outpatient (AMB) | payer MEDICARE, SELFPAY ==
--- NOTE | 2024-12-05 10:08 | A.OFFVIS_ITS ---
Vital Signs 12/05/24 10:08 Height 5 ft 5 in Intake Visit Reasons: 6 mnts / MCl Allergies morphine Allergy (Severe, Verified 12/05/24 10:16) Vomiting ELIJAH Inhibitors Adverse Reaction (Severe, Verified 12/05/24 10:16) Cough Medication List - Last Reconciled 12/05/24 by Kasia Miranda CNP amlodipine 10 mg PO DAILY aspirin (Adult Aspirin Regimen) 81 mg PO DAILY atorvastatin 10 mg PO DAILY calcitriol 0.25 mcg PO DAILY famotidine 20 mg PO BID levothyroxine 100 mcg PO DAILY losartan 25 mg PO DAILY metoprolol tartrate 25 mg PO DAILY HPI Comments Details: She was started on medication about 2 weeks ago for 2 months, but is unsure of name. Memory was about the same. She still has trouble with names and places. She was in a book club that meets once a month, but had to read the book close to when they were meeting or she would forget what she read. 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 She was shopping, cooking, cleaning, and managing finances. Sleep was so-so. No neck pain or upper extremity symptoms at this time. [place] memory not as sharp beginning around 2019, particularly for names places and remembering what she has read. Hx of episodes of tingling that go from the shoulders down to the hands bilaterally without any triggers, lasting from several seconds to a couple of minutes. Sometimes her whole head tingles from the neck up. At times she feels like a black veil coming over her, but she does not pass out or lose her vision. She used to get optical migraines from the till about 2013 and then they had stopped till a single episode in 01/2024. [facility] Medical History (Updated 12/05/24 @ 10:15 by Kasia Miranda CNP) Cervical myelopathy MCI (mild cognitive impairment) Social History Alcohol intake: current Alcohol intake frequency: holidays/special occasions only Patient Tobacco Use Status: Never used Tobacco Current occupational status: retired Review of Systems Const Denies chills, Denies daytime sleepiness, Reports difficulty sleeping, Denies fatigue, Denies fever(s), Denies frequent falls, Denies headache(s), Denies increased appetite, Denies poor appetite, Reports snoring, Denies weakness, Denies weight gain and Denies weight loss Eyes Denies loss of vision ENT Denies vertigo, Reports dizziness, Denies headache(s) and Denies neck pain Card Denies chest pain at rest, Denies chest pain with activity, Denies syncope, Denies leg edema, Denies palpitations, Denies dyspnea and Denies dyspnea on exertion Resp Denies cough, Denies dyspnea, Denies dyspnea on exertion and Reports snoring GI Denies abdominal pain, Denies constipation, Denies heartburn, Denies diarrhea and Denies nausea Denies urinary frequency, Denies urinary incontinence and Denies urinary urgency Musc Denies abnormal gait, Denies back pain, Denies myalgias, Denies arthralgias, Denies neck pain, Reports numbness and Reports tingling Neuro Denies abnormal gait, Denies vertigo, Reports dizziness, Denies syncope, Denies frequent falls, Denies headache(s), Denies lack of coordination, Denies loss of vision, Reports memory loss, Reports numbness, Denies Other visual disturbances, Denies restless legs, Denies seizure-like activity, Reports tingling, Denies paresthesias, Denies tremor(s) and Denies weakness Psych Denies anxiety, Denies depression, Denies auditory hallucinations, Reports memory loss and Denies visual hallucinations Endo Denies fatigue and Denies palpitations Physical Exam Const Other: General Appearance:? normal, in no acute distress. Heart:? S1, S2 normal, no murmurs. Lungs:? clear anteriorly and posteriorly. Musculoskeletal:? normal. Extremities:? no edema. Psych:? alert, as below Neuro Other: Abnormal Neurological Findings:?none.? Mental Status: alert, as below Cranial Nerves: Pupils are equal, round, and reactive to light. External ocular muscles are intact. Visual malhotra are full, no ptosis. Face is symmetrical, no facial weakness or droop. Facial sensations are normal. Tongue protrudes in midline. Palate elevates symmetrically. Shoulder shrugging is normal Motor Examination: Normal muscle tone, bulk and strength. No atrophy or fasciculations. No drift of the extended upper extremities. DTR 2+. Plantars are flexor. Straight Leg Raisin degrees. Sensory Exam: Normal light touch, temperature, pinprick, vibration, and joint- position sensations. Rhomberg sign is absent. Coordination: No ataxia. No titubation. Ocaqgr-nd-cstx, vrlw-qmcl-rfdq test, and rapid alternating movements were normal. Gait Exam: Within normal limits. Cerebellar Signs: Doeizz-bu-fvdn and fkcb-hf-bgit is normal. No dysdiadochokinesia. Extrapyramidal System: No tremor, rigidity with normal facial expressions. No bradykinesia. No bradyphrenia. Normal arm swing and posture. No propulsion or retropulsion. Speech: Normal. No dysphasia or dysarthria. MMSE Level of Consciousness: Alert. Orientation: Knows correct year, month, day and season. Does not know date (says it is December 04) Knows correct city, county and state. Knows correct location and floor. Registration: Able to register 3 objects. Attention: Serial 7's performed accurately to 65 Recall: Able to recall 3 out of 3 objects. Language: Normal spontaneous speech, fluency, repetition, naming, comprehension, reading, and writing. Total Score: 29/30. Results Reviewed Results Reviewed: 03/16/24 EEG- WNL 03/14/24 NCV/EMG UE Early Carpal tunnel syndrome on the right. Normal EMG in the right C5-T1 innervated muscles. Labs normal except for known kidney impairment. 02/28/24 MRI C spine: Severe spinal stenosis at C5-6 and C 6-7 with cord distortion and compression and myelomalacia, severe foraminal stenosis at C5-6 on left and C6-7 on RWill drop off disc for review 11/07 MRI Brain: Interval progression of atrophy compared to 2020. Small focus in FLAIR signal in left parietal lobe white matter Assessment & Plan Assessment & Plan (1) MCI (mild cognitive impairment): Code(s): G31.84 - Mild cognitive impairment of uncertain or unknown etiology Category: Medical Plan: She was not interested in medication at this time. Stay physically, socially, and intellectually active. (2) Cervical myelopathy: Code(s): G95.9 - Disease of spinal cord, unspecified Category: Medical Plan: Stable. Aware to contact office or neurosurgeon if symptoms change/worsen. Coding Level of Care Code Est Pt Level 3 (27759) Diagnoses MCI (mild cognitive impairment) G31.84 Cervical myelopathy G95.9
--- OUTSIDE RECORDS SUMMARY | 2024-12-05 10:45 | XMS_ITS ---
Author Name [facility] Organization Unknown History of Medication Use Medication Directions Dispensed Refills Start Date End Date Stat us Kenalog 40 mg/mL suspension for injection Take 1 mL by injection route. 03/30/2023 active levothyroxine 125 mcg tablet TAKE ONE TABLET BY MOUTH DAILY 03/30/2023 completed losartan 08/12/2022 completed Kenalog 40 mg/mL suspension for injection active amlodipine 10 mg tablet TAKE ONE TABLET BY MOUTH EVERY DAY active atorvastatin 20 mg tablet TAKE ONE-HALF TABLET BY MOUTH ONCE DAILY active losartan 25 mg tablet TAKE ONE TABLET BY MOUTH EVERY DAY active Allergies Allergen Reaction Severity Comment Documented Date Source Statu s LISINOPRIL ENS[facility]ECT MORPHINE [facility] Problems Problem Status Onset Date Problem Type Date of Resoluti on Source Full thickness rotator cuff tear active 2022-08-05 ProblemAct [facility] Impingement syndrome of left shoulder region active 2022-08-12 ProblemAct [facility] ECT Encounters Encounter Type Encounter Reason Primary Diagnosis Location Date Ambulatory [facility] 09/02/2022 Ambulatory [facility] 08/12/2022
--- OUTSIDE RECORDS SUMMARY | 2024-12-05 10:45 | XMS_ITS | Clinical Summary ---
Author Organization [facility] Address [address] [place] [address] Care Team Providers Care Team Assembly Line Machine Operator Name Role Phone Jefferson Fletcher MD Primary Care Provider [phone] Allergies Active Allergy Reactions Criticality Noted Date [...] Vaccine ( season) 2024 02/20/2021, 07/07/2020, 06/17/2020 DTap / Tdap / Td (2 - Td or Tdap) 01/23/2024 01/22/2014, 10/19/2003, 12/04/1993 Influenza Vaccine (#1) 2025 6, 02/22/2014, 02/22/2014, Additional history exists Pneumococcal Vaccine Completed 08/09/2018, 01/22/2014, 04/13/2005 Hepatitis B Vaccines Aged Out No long er eligible based on patient's age to complete this topic RSV Ped < 20 months Aged Out No longe r eligible based on patient's age to complete this topic Care Teams Team Assembly Line Machine Operator Relationship Specialty Start Date End Date Jefferson Fletcher MD PCP - General Internal Medicine 04/24/22
--- OUTSIDE RECORDS SUMMARY | 2024-12-05 10:45 | XMS_ITS | Clinical Summary ---
Author Organization [facility] [address] [facility] Address [address] [place] [address] Phone Care Team Providers Care Healthcare Translator Name Role Phone Jefferson Fletcher MD Primary Care Provider [phone] Allergies Active Allergy Reactions Criticality Noted Date Comments Charles Inhibitors Other Low 01/03/2009 Cough Morphine Nausea And Vomiting 05/02/2006 Medications atorvastatin (LIPITOR) 20 mg tablet Take 10 mg by mouth at bedtime. 2 Active cholecalcifero l (VITAMIN D-3) 50 mcg (2,000 unit) capsule Take 1 capsule (2,000 Units total) by mouth 1 (one) time each day. 1 Active aspirin 81 mg chewable tablet Chew 1 tablet (81 mg total) 1 (one) time each day. Active calcitrioL (ROCALTROL) 0.25 mcg capsule Take 1 capsule (0.25 mcg total) by mouth every other day. 90 capsule 3 5 Active famotidine (PEPCID) 20 mg tablet TAKE ONE TABLET BY MOUTH TWICE A DAY 180 tablet 5 Active losartan (COZAAR) 25 mg tablet TAKE ONE TABLET BY MOUTH EVERY DAY 30 tablet 2 5 Active amLODIPine (NORVASC) 10 mg tablet TAKE ONE TABLET BY MOUTH EVERY DAY 90 tablet 5 Active levothyroxine (SYNTHROID, LEVOTHROID) 100 mcg tablet TAKE ONE TABLET BY MOUTH EVERY DAY 90 tablet 5 Active buPROPion (WELLBUTRIN) 75 mg tablet Take 1 tablet (75 mg total) by mouth 2 (two) times a day. 60 each 1 5 01/13/20 25 Active metoprolol tartrate (LOPRESSOR) 25 mg tablet TAKE ONE TABLET BY MOUTH EVERY DAY 90 tablet 1 5 Active metoprolol tartrate (LOPRESSOR) 25 mg tablet TAKE ONE TABLET BY MOUTH EVERY DAY 90 tablet 1 4 11/22/19 25 Discontinued Active Problems Problem Noted Date Diagnosed Date Secondary hyperparathyroidism of renal origin ([facility] V24) 06/07/2024 Memory deficit 06/09/2022 Esophageal dysmotility 12/15/2021 Gastroesophageal reflux disease without esophagi tis 05/07/2015 DM type 2 causing eye disease ([facility] V24, [facility]/ [facility] V28) 09/14/2014 Nuclear sclerosis 09/14/2014 Overview (04/24/2024): Present in both eyes--taken from note of Dr. 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 ([facility] V24, [facility] V28) 04/05/2006 Overview (04/24/2024): treated with chemo 02/2006 - 04/2006 RT to lymph nodes D11-04/2006 X4 Obesity, unspecified 12/14/2005 Hypercholesterolemia 05/04/2000 Ocular migraine 09/17/1998 Overview (04/24/2024): IMO update Hypertension 06/28/1998 Assessment & Plan (07/27/2024 1:30 PM EDT): Encounters Date Type Department Care Team Description 11/13/2024 2:30 PM EDT Office Visit Adult Medicine [address] [phone] Jefferson Fletcher MD Stage 3b chronic kidney disease ([facility] V24, [facility] V28) (Primary Dx); DM type 2 causing eye disease ([facility] V24, [facility] V28); Primary hypertension; Hypothyroidism, unspecified type; Memory deficit; Lack of motivation from Last 3 Months Immunizations Name Administration Dates Next Due H1N1 Inj Preservative Free 05/15/2009 Hepatitis A Adult (Havrix; V aqta) 19yo and older 10/26/2003 IPV Inactivated polio (Ipol) 6wks and older 11/02/2003 Influenza trivalent, 0.5mL ( Fluad) 65yo and older 02/03/2016,02/22/2014,01/24/2013,03/18,01/21/2011,01/23/2010,01/28/2009 Influenza trivalent, 0.5mL, preservative free (Fluarix; FluLaval; Fluzone) ages 6mo and older (Afluria) 3 years and older 03/19/2008,02/22/2007 [employer] SARS-CoV-2 COVID-19, mRNA, LNP-S, preservative free 06/16/2020 [...] PROCEDURE: HISTORICAL COLONOSCOPY; COMMENT: Dr. 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 (CMS/HCC V24, CMS/HCC V28) 04/05/2006 DX:Malignant neoplasm of ba se of tongue (HCC); COMMENT: treated with chemo 02/2006 - 04/2006 [...] mellitus) type II controlled with renal manifestation (CMS/HCC V24, CMS/HCC V28) 04/27/2011 DX:DM (diabetes mellitus) t ype II controlled with renal manifestation ([facility]) History of other specified c onditions [...] = 0.6 oz pur e alcohol) Comments No Sex and Gender Information Value Date Recorded Sex Assigned at Not on file Legal Sex Female 7:08 PM EST Gender Identity Not on file Sexual Orientation Not on file Obstetrics History Last Filed Vital Signs Vital Sign Reading Time Taken Comments Blood Pressure 129/84 11/13/2024 2:28 PM EDT Pulse 74 11/13/2024 2:28 PM EDT Temperature 36.3 C (97.3 F) 11/13/2024 2:28 PM EDT Respiratory Rate 20 11/13/2024 2:28 PM EDT Oxygen Saturation 98% 07/27/2024 9:36 AM EDT Inhaled Oxygen Concentration - - Weight 86.2 kg (190 lb) 11/13/2024 2:28 PM EDT Height 165.1 cm (5' 5 ) 11/13/2024 2:28 PM EDT Body Mass Index 31.62 11/13/2024 2:28 PM EDT Plan of Treatment Upcoming Encounters Date Type Department Care Team (Late st Contact Info) Description 01/03/2025 4:30 PM EDT Office Visit Nephrology - [address] [phone] Osmar Bales MD [address] [facility] [address] [place] [phone] 01/16/2025 8:00 AM EDT Appointment Radiology Department - [address] [phone] 01/17/2025 8:30 AM EDT Office Visit Adult Medicine [facility] - [address] [phone] Jefferson Fletcher MD [address] [place] [address] Health Maintenance Due Date Last Done Comments Diabetes: Annual Retina Eye Exam 1955 Zoster Vaccines (1 of 2) 1963 IPV Vaccines (2 of 3 - Adult catch-up series) 11/30/2003 11/02/2003 RSV Immunization Adult Patients (1 - 1-dose 75+ series) 2019 Social Influencers of Health Screening 04/25/2022 COVID-19 Vaccine (5 - 2023- season) 2024 04/01/2022, 02/20/2021, 07/07/2020, Additional history exists DTaP,Tdap,and Td Vaccines (5 - Td or Tdap) 01/23/2024 01/22/2014, 10/19/2003, 10/19/2003, Additional history exists Diabetes: Blood Sugar Control Test (HGBA1C) 11/30/2024 06/02/2024, 03/09/2024, 03/09/2024, Additional history exists Influenza Vaccine (#1) 2025 6, 02/22/2014, 01/24/2013, Additional history exists Diabetes: Annual Foot Exam 03/13/2025 03/13/2024 Falls [...] Vaccine: 50+ Years Completed 08/09/2018, 01/22/2014, 04/13/2005 Depression Screening Completed 11/10/2024, 03/13/20 24 HIB Vaccines Aged Out No longer eligi [...] age to complete this topic Meningococcal B Vaccine Aged Out No l onger eligible based on patient's age to complete this topic RSV Immunization Patients Under 20 months Aged Out No longer eligible based on patient's age to complete this topic Varicella Vaccines Aged Out No longer eligible based on patient's age to complete this topic Procedures Procedure Name Priority Date/Time Associated Diagnosis Comments MICROALBUMIN CREATININE URINE RATIO Routine 06/02/2024 1:07 PM EST DM type 2 causing eye disease ([facility]/HCC V24, CMS/HCC V28) Hypertension, unspecified type Hypercholesterolemi a Hypothyroidism, unspecified type Stage 3 chronic kidney disease, unspecified whether stage 3a or 3b CKD (CMS/HCC V24, CMS/HCC V28) BASIC METABOLIC PANEL Routine 06/02/2024 1:07 PM EST DM type 2 causing eye disease (CMS/HCC V24, CMS/HCC V28) Hypertension, unspecified type Hypercholesterolemi a Hypothyroidism, unspecified type Stage 3 chronic kidney disease, unspecified whether stage 3a or 3b CKD (CMS/HCC V24, CMS/HCC V28) HEMOGLOBIN A1C Routine 06/02/2024 1:07 PM EST DM type 2 causing eye disease (CMS/HCC V24, CMS/HCC V28) Hypertension, unspecified type Hypercholesterolemi a Hypothyroidism, unspecified type Stage 3 chronic kidney disease, unspecified whether stage 3a or 3b CKD (CMS/HCC V24, CMS/HCC V28) LIPID PANEL WITH REFLEX TO DIRECT LDL Routine 06/02/2024 1:07 PM EST DM type 2 causing eye disease ([facility] V24, [facility] V28) Hypertension, unspecified type Hypercholesterolemi a Hypothyroidism, unspecified type Stage 3 chronic kidney disease, unspecified whether stage 3a or 3b CKD ([facility] V24, [facility] V28) DEPRESSION SCREENING Routine 03/13/2024 FALLS RISK ASSESSMENT Routine 03/13/2024 DIABETES FOOT EXAM Routine 03/13/2024 DXA BONE DENSITY STUDY 1+ SITS AXIAL SKEL Routine 01/15/2023 11:04 AM EDT Other specified personal risk factors, not elsewhere classified from Last 3 Months or Most Recently Relevant to Health Maintenance Results * (ABNORMAL) Lipid panel with reflex to direct LDL (06/02/2024 1:07 PM EST) Cholesterol 217(H) 0 - 200 mg/dL LAB CHEMISTRY METHOD 06/02/2024 9:12 PM [facility] Triglycerides 208(H) 0 - 150 mg/dL LAB CHEMISTRY METHOD 06/02/2024 9:12 PM [facility] HDL 61 >=40 mg/dL LAB CHEMISTRY METHOD 06/02/2024 9:12 PM [facility] LDL Calculated 114(H) 0 - 100 mg/dL LAB CHEMISTRY METHOD 06/02/2024 9:12 PM [facility] VLDL Cholesterol Gregory 41.6 mg/dL LAB CHEMISTRY METHOD 06/02/2024 9:12 PM [facility] Non HDL Chol. (LDL+VLDL) 156(H) <145 mg/dL LAB CHEMISTRY METHOD 06/02/2024 9:12 PM [facility] Chol/HDL Ratio 3.6 0.0 - 4.4 LAB CHEMISTRY METHOD 06/02/2024 9:12 PM [facility] Blood Venous blood specimen / Unknown Venipuncture / Unknown 06/02/2024 1:07 PM EST 06/02/2024 1:07 PM EST us Jefferson Fletcher MD LAB BLOOD ORDERABLES Final Resul t Performing Organization Address [facility]/ZIP Co de Phone Number [facility] [address] [place] [address], * (ABNORMAL) Microalbumin creatinine urine ratio (06/02/2024 1:07 PM EST) Creatinine, Urine 158.0 mg/dL LAB CHEMISTRY METHOD 06/02/2024 10:58 PM EST [facility] Microalb, Ur 45.4(H) 0.0 - 29.0 mg/L LAB CHEMISTRY METHOD 06/02/2024 10:58 PM EST [facility] Microalb/Crea t Ratio 29 <30 mg/g creat LAB CHEMISTRY METHOD 06/02/2024 10:58 PM EST [facility] Urine Urine specimen obtained by clean catch procedure / Unknown Non-blood Collection / Unknown 06/02/2024 1:07 PM EST 06/02/2024 1:07 PM EST us Jefferson Fletcher MD LAB URINE ORDERABLES Final Resul t Performing Organization Address City/[facility]/ZIP Co de Phone Number [facility] [address] [place] [address], [place] [phone] * Hemoglobin A1c (06/02/2024 1:07 PM EST) Hemoglobin A1C 6.3 <6.5 % LAB CHEMISTRY METHOD 06/02/2024 10:06 PM EST [facility] Mean Bld Glu Estim. 134 mg/dL LAB CHEMISTRY METHOD 06/02/2024 10:06 PM EST [facility] Blood Venous blood specimen / Unknown Venipuncture / Unknown 06/02/2024 1:07 PM EST 06/02/2024 1:07 PM EST us Jefferson Fletcher MD LAB BLOOD ORDERABLES Final Resul t [facility] [address] [place] [address], [place] [phone] * (ABNORMAL) Basic metabolic panel (06/02/2024 1:07 PM EST) Sodium 134 133 - 145 mmol/L LAB CHEMISTRY METHOD 06/02/2024 9:11 PM [facility] Potassium 4.6 3.5 - 5.5 mmol/L LAB CHEMISTRY METHOD 06/02/2024 9:11 PM [facility] Chloride 101 96 - 110 mmol/L LAB CHEMISTRY METHOD 06/02/2024 9:11 PM [facility] CO2 28 21 - 32 mmol/L LAB CHEMISTRY METHOD 06/02/2024 9:11 PM [facility] Anion Gap 5 3 - 11 LAB CHEMISTRY METHOD 06/02/2024 9:11 PM [facility] Glucose 114(H) 70 - 100 mg/dL LAB CHEMISTRY METHOD 06/02/2024 9:11 PM [facility] BUN 33(H) 5 - 25 mg/dL LAB CHEMISTRY METHOD 06/02/2024 9:11 PM [facility] Creatinine 1.66(H) 0.50 - 1.10 mg/dL LAB CHEMISTRY METHOD 06/02/2024 9:11 PM [facility] eGFR 31(L) >=60 mL/min/1. 73m2 LAB CHEMISTRY METHOD 06/02/2024 9:11 PM [facility] Comment:Calculation based on the Chronic Kidney Disease Epidemiology Collaboration (CKD-EPI) equation refit without adjustment for race. BUN/Creatinine Ratio 19.9 LAB CHEMISTRY METHOD 06/02/2024 9:11 PM [facility] Calcium 9.7 8.5 - 10.5 mg/dL LAB CHEMISTRY METHOD 06/02/2024 9:11 PM EST [facility] Blood Venous blood specimen / Unknown Venipuncture / Unknown 06/02/2024 1:07 PM EST 06/02/2024 1:07 PM EST Jefferson Fletcher MD LAB BLOOD ORDERABLES Final Resul t [facility] [address] [place] [address], [place] [phone] * Falls Risk Assessment (03/13/2024) [facility] Falls Risk Assessment Abstracted [facility] Provider HEALTH MAINTENANCE Final Result * Depression Screening (03/13/2024) Pathologist [facility] Depression Screening Abstracted Historical Provider HEALTH MAINTENANCE Final Result * Diabetes Foot Exam (03/13/2024) Pathologist [facility] Diabetes: Annual Foot Exam Abstracted [facility] Provider HEALTH MAINTENANCE Final Result * DXA BONE DENSITY STUDY 1+ SITS AXIAL SKEL (01/15/2023 11:04 AM EDT) Anatomical Region Laterality Modality Bone Densitometr y 12/01/2022 10:1 4 AM EDT Narrative 01/15/2023 5:49 PM EDT STUDY: DUAL ENERGY X-RAY ABSORPTIOMETRY / DXA REASON FOR EXAM: Female, 77 years old. menopausal/postmenopausal disorder TECHNIQUE: Bone Mineral Density (BMD) measurements of the lumbar spine and left hip were obtained. COMPARISON: March 29, 2017 FINDINGS: L1-L4 T score: 2.3. This corresponds to Normal bone density. This represents a 3.9 % increase in bone density compared with prior exam from March 29, 2017. Left femoral neck T score: 0.3. This corresponds to Normal bone density. Left total hip T score: 0.4. This [...] Densitometry [email or web address]://www.iscd.org 3. National Osteoporosis Foundation [email or web address]://www.nof.org Procedure Note Brissa Dee [...] Recently Relevant to Health Maintenance Insurance MEDICARE [facility] Care Teams Healthcare Translator Relationship Specialty Start Date End Date Jefferson Fletcher MD [address] [place] [address] PCP - General 05/17/1992
--- OUTSIDE RECORDS SUMMARY | 2024-12-05 10:45 | XMS_ITS | Clinical Summary ---
Author Organization [facility] Address [address] [address] Care Team Providers Care Fisher Trawl Line Name Role Phone Unavailable Primary Care Provider [...] Due Date Last Done Comments Pneumococcal Vaccine: 50+ Ye ars (1 of 1 - PCV) 1994 Influenza Vaccine (#1) 2025 Hepatitis B Vaccine Aged Out No longe r eligible based on patient's age to complete this topic
== END 2024-12-05 10:33 | disposition home or self-care (01) ==
LOC: HO.HSM 09:55
PROVIDERS: PCP Internal Medicine; Visit Provider Registered Nurse
DX: G31.84 Mild cognitive impairment of uncertain or unknown etiology (principal); G95.9 Disease of spinal cord, unspecified
CPT/HCPCS: 99213

== ENCOUNTER → 2024-12-05 09:54 | Outpatient (BNVA) | payer MEDICARE, SELFPAY | PROVIDERS: PCP Internal Medicine; Visit Provider Registered Nurse | DX: G31.84 Mild cognitive impairment of uncertain or unknown etiology (principal); G95.9 Disease of spinal cord, unspecified | CPT/HCPCS: 99212 ==